=== PATIENT | female | born 1970 | race Caucasian/White ===

== ENCOUNTER 2022-10-03 17:16 | Emergency (ER) | payer OTHER, SELFPAY ==
[2022-10-03 17:37] VITALS: BP 112/72; PULSE 71; RESP 16; TEMP 36.2; O2SAT 97
--- NOTE | 2022-10-03 19:00 | ED.GENADULT ---
HPI - General Adult General Chief complaint: Skin/Abscess/Foreign Body Stated complaint: Skin Sore/Finger Source: patient Mode of arrival: ambulatory Limitations: no limitations History of Present Illness HPI narrative: Patient presents for evaluation of redness, swelling, pain to the skin surrounding the nail plate of the right index finger for the last week. No fever, chills, nausea, vomiting. She has tried to express fluid from the affected area. She states that sanguinous drainage has been present without purulence. She is not diabetic. She smokes approximately half a pack per day. No loss of range of motion. No paresthesias. She is right-hand dominant. She has applied a heating pad which seems to help. No additional complaints or concerns. Related Data Home Medications Medication Instructions Recorded Confirmed diclofenac sodium 75 mg mg PO 10/03/22 tablet,delayed release levothyroxine 112 mcg tablet mcg 10/03/22 rosuvastatin 20 mg tablet mg 10/03/22 Allergies Allergy/AdvReac Type Severity Reaction Status Date / Time No Known Allergies Allergy Verified 10/03/22 17:33 Review of Systems Review of Systems: CONSTITUTIONAL: Denies fever, chills, or sweats. EYES: Denies visual changes, redness, or discharge. ENT: Denies rhinorrhea, congestion, sore throat, or otalgia. CARDIOVASCULAR: Denies chest pain, palpitations, or edema. RESPIRATORY: Denies cough or dyspnea. GASTROINTESTINAL: Denies abdominal pain, nausea, vomiting, or diarrhea. GENITOURINARY: Denies dysuria or hematuria. SKIN: Reports swelling and redness to skin surrounding the nail plate of the right index finger MUSCULOSKELETAL: Reports pain in the right index finger. NEUROLOGIC: Denies headache, numbness, dizziness, or weakness. PSYCHIATRIC: Denies anxiety or depression. [facility] Past Medical History Medical History Hyperlipidemia Surgical History Surgical History No pertinent past surgical history Family History Family History Mother Family history non-contributory Social History Social History Smoking packs per day: 0.5 Smoking cigarettes per day: 10.0 Smoking status: Current every day smoker Alcohol intake: never Substance use: never Gender identity (if verbalized by the patient): Female Spiritual care concerns: No Exam Narrative: GENERAL: Well-appearing, well-nourished, and in no acute distress. HEAD: Normocephalic, atraumatic. EYES: PERRLA and EOMI. ENT: Nares clear, no rhinorrhea or epistaxis. Mucous membranes moist. Oropharynx without tonsillar hypertrophy exudate or other lesions. Bilateral TMs pearly ken nonbulging NECK: Supple. No adenopathy or masses. No carotid bruits or JVD CHEST: Clear to auscultation. No respiratory distress. No wheezes rales or rhonchi HEART: Regular rate and rhythm. No murmur heard. Normal peripheral pulses. ABDOMEN: Soft, nontender, nondistended, normal active bowel sounds. EXTREMITIES: Normal range of motion. No edema. SKIN: There is erythema and swelling to the skin surrounding the nail plate of the right index finger. Skin is excoriated. NEURO: No focal deficits. Alert and oriented x3. PSYCH: Normal mood and affect. Course Course Emergency Course: This is a 51-year-old female who presented for evaluation of pain, swelling, redness to the skin surrounding the nail plate of the right index finger. Exam is consistent with paronychia. Advised on warm soaks. Will discharge with Bactrim and Keflex. Follow up with primary provider. Advised not to smoke. Increase hydration. Go to the ER for worsening symptoms. Patient in agreement with plan of care. Level of Care: Express Care Visit Vital Signs Vital signs: Vital Signs Temperat
== END 2022-10-03 19:06 | disposition home or self-care (01) ==
PROVIDERS: Emergency Provider Nurse Practitioner; PCP Family Medicine
DX: L03.011 Cellulitis of right finger (principal); F17.210 Nicotine dependence, cigarettes, uncomplicated; E78.5 Hyperlipidemia, unspecified
CPT/HCPCS: 99213; G0463

== ENCOUNTER 2023-02-21 10:23 | Emergency (ER) | payer OTHER, SELFPAY ==
--- NOTE | 2023-02-21 10:28 | ED.SKABFB ---
HPI - Skin/Abscess/Foreign Bdy General Chief complaint: Skin/Abscess/Foreign Body Stated complaint: Rash Time Seen by Provider: 02/21/23 10:28 Source: patient and RN notes reviewed History of Present Illness HPI narrative: Patient is a 52-year-old female presents to urgent care with complaints of possibility of poison jorge to bilateral arms, hands, right eyelid, behind the left ear and bilateral legs. Patient states that she was pulling weeds approximately 1 week ago and believes she may have gotten to poison jorge. Patient states that she has been using an over counter the cream without much relief. No other acute complaints. No acute distress noted. Patient aware of the plan of care. Some parts of this dictation were generated by voice recognition software and may contain typographical and/or grammatical inaccuracies. Related Data Home Medications Medication Instructions Recorded Confirmed diclofenac sodium 75 mg mg PO 10/03/22 tablet,delayed release levothyroxine 112 mcg tablet mcg 10/03/22 rosuvastatin 20 mg tablet mg 10/03/22 Allergies Allergy/AdvReac Type Severity Reaction Status Date / Time No Known Allergies Allergy Verified 10/03/22 17:33 Review of Systems Review of Systems: CONSTITUTIONAL: Denies fever, chills, or sweats. EYES: Denies visual changes, redness, or discharge. ENT: Denies rhinorrhea, congestion, sore throat. Reports of left otalgia CARDIOVASCULAR: Denies chest pain, palpitations, or edema. RESPIRATORY: Denies cough or dyspnea. GASTROINTESTINAL: Denies abdominal pain, nausea, vomiting, or diarrhea. GENITOURINARY: Denies dysuria or hematuria. SKIN: Reports possible itchy poison jorge to bilateral lower legs, arms, the right eyelid and left ear MUSCULOSKELETAL: Denies back pain, joint pain, or myalgia. NEUROLOGIC: Denies headache, numbness, or weakness. All other systems reviewed are negative, except as documented in HPI. [facility] Past Medical History Medical History (Updated 02/21/23 @ 10:45 by MIKEL Corey) Hyperlipidemia Surgical History Surgical History No pertinent past surgical history Family History Family History Mother Family history non-contributory Social History Social History Smoking packs per day: 0.5 Smoking cigarettes per day: 10.0 Smoking status: Current every day smoker Alcohol intake: never Substance use: never Gender identity (if verbalized by the patient): Female Spiritual care concerns: No Comments At the time of my signature, I reviewed and agree with the nursing past medical, surgical, social, and family history. There is no relevant family history pertinent to the patient complaint. Exam Narrative: GENERAL: This is a well-nourished, well-developed patient, in no apparent distress. HEAD: normocephalic, atraumatic. EYES: PERRL. Sclera clear/white. Vision is grossly intact. EARS: Mild erythema and dry dermatitis noted behind the left external ear. Right External ears normal, auditory canals clear and without drainage, TMs normal without perforation. Hearing grossly intact. NOSE: External nose normal with no obvious nasal discharge, nares without redness, no rhinorrhea. THROAT: Mucous membranes moist NECK: Neck supple CARDIOVASCULAR: Regular rate and rhythm without murmurs, gallops, or rubs. RESPIRATORY: Clear to auscultation. Breath sounds equal bilaterally. No wheezes, rales, or rhonchi. SKIN: Pruritic, raised erythema rash to bilateral arms, legs, right eyelid and behind the left ear., warm, intact with no suspicious lesions or rash, good texture and turgor. NEURO: awake, alert, and oriented to person, place and time. There were no obvious focal neurologic abnormalities. EXTREMITIES: No clubbing, cyanosis, or edema. Course Course Level o
[2023-02-21 10:35] VITALS: BP 125/78; PULSE 65; RESP 16; TEMP 37; O2SAT 100
== END 2023-02-21 11:04 | disposition home or self-care (01) ==
PROVIDERS: Emergency Provider Nurse Practitioner Family
DX: L23.7 Allergic contact dermatitis due to plants, except food (principal); E78.5 Hyperlipidemia, unspecified; F17.210 Nicotine dependence, cigarettes, uncomplicated
CPT/HCPCS: 99213; G0463

== ENCOUNTER 2023-02-27 09:28 | Emergency (ER) | payer OTHER, SELFPAY ==
[2023-02-27 09:34] VITALS: BP 131/84; PULSE 74; RESP 20; TEMP 36.8; O2SAT 100
--- NOTE | 2023-02-27 09:47 | ED.EAR ---
HPI - Ear Problem General Chief complaint: Ear Stated complaint: Ear Pain Source: patient and RN notes reviewed History of Present Illness HPI Narrative: 52 yo F presents to urgent care with complaints of left ear pain for 1 week. Pt reports some yellow/brown drainage from the ear. Denies swimming this past week but states she was prior to the pain starting. Denies any fevers, chills, vomiting, sore throat, or congestion. Pt was seen here 1 week ago and given steroids for poison jorge which pt states is resolving. Related Data Home Medications Medication Instructions Recorded Confirmed levothyroxine 112 mcg tablet 112 mcg PO DIRECTED 10/03/22 02/27/23 rosuvastatin 20 mg tablet 20 mg PO DIRECTED 10/03/22 02/27/23 Allergies Allergy/AdvReac Type Severity Reaction Status Date / Time No Known Allergies Allergy Verified 02/27/23 09:47 Review of Systems Review of Systems: Pertinent positives and pertinent negatives per HPI. [facility] Past Medical History Medical History (Updated 02/27/23 @ 09:56 by Anay Beverly, [employer]) Hyperlipidemia Surgical History Surgical History No pertinent past surgical history Family History Family History Mother Family history non-contributory Social History Social History Smoking packs per day: 0.5 Smoking cigarettes per day: 10.0 Smoking status: Current every day smoker Alcohol intake: never Substance use: never Gender identity (if verbalized by the patient): Female Spiritual care concerns: No Comments At the time of my signature, I reviewed and agree with the nursing past medical, surgical, social, and family history. There is no relevant family history pertinent to the patient complaint. Exam Narrative: GENERAL: This is a well-nourished, well-developed patient, in no apparent distress. HEAD: normocephalic, atraumatic. EYES: Sclera clear/white. Vision is grossly intact. EARS: External ears normal, left ear canal and TM erythemic and edematous. NOSE: External nose normal with no obvious nasal discharge, nares without redness, no rhinorrhea. THROAT: Mucous membranes moist, posterior pharynx clear. NECK: Neck supple, non-tender without lymphadenopathy, masses or thyromegaly. CARDIOVASCULAR: Regular rate RESPIRATORY: No respiratory distress SKIN: warm, intact with no suspicious lesions or rash, good texture and turgor. NEURO: awake, alert, and oriented to person, place and time. There were no obvious focal neurologic abnormalities. Course Course Level of Care: Express Care Visit Vital Signs Vital signs: Vital Signs Temperature 98.3 F 02/27/23 09:34 Pulse Rate 74 02/27/23 09:34 Respiratory Rate 20 02/27/23 09:34 Blood Pressure 131/84 02/27/23 09:34 Pulse Oximetry 100 02/27/23 09:34 Oxygen Delivery Room Air 02/27/23 09:34 Temperature 98.3 F 02/27/23 09:34 Pulse Rate 74 02/27/23 09:34 Respiratory Rate 20 02/27/23 09:34 Blood Pressure 131/84 02/27/23 09:34 Pulse Oximetry 100 02/27/23 09:34 Oxygen Delivery Room Air 02/27/23 09:34 Reviewed Medical Decision Making MDM Narrative Medical decision making narrative: Take antibiotics as directed. May given ibuprofen and/or Tylenol as needed for pain and/or fever. Follow up with primary care provider in 7-10 days to have ear rechecked. Differential Diagnosis Differential Diagnosis: Acute otitis media, otitis externa, cerumen impaction Vital Signs Vital Signs: Vital Signs Temperature 98.3 F 02/27/23 09:34 Pulse Rate 74 02/27/23 09:34 Respiratory Rate 20 02/27/23 09:34 Blood Pressure 131/84 02/27/23 09:34 Pulse Oximetry 100 02/27/23 09:34 Oxygen Delivery Room Air 02/27/23 09:34 Temperature 98.3 F 02/27/23 09:34 Pulse Rate 74 02/27/23
== END 2023-02-27 09:58 | disposition home or self-care (01) ==
PROVIDERS: Emergency Provider Nurse Practitioner Family
DX: H66.92 Otitis media, unspecified, left ear (principal); F17.210 Nicotine dependence, cigarettes, uncomplicated; E78.5 Hyperlipidemia, unspecified
CPT/HCPCS: 99213; G0463

== ENCOUNTER 2024-07-19 12:06 | Emergency (ER) | payer OTHER, SELFPAY ==
[2024-07-19 12:15] VITALS: BP 130/76; PULSE 73; RESP 16; TEMP 36.4; O2SAT 98
--- NOTE | 2024-07-19 12:50 | ED.GENADULT ---
HPI - General Adult General Chief complaint: Upper Respiratory Infection Stated complaint: poss sinus infection/ears Source: patient Mode of arrival: ambulatory Limitations: no limitations History of Present Illness HPI narrative: Patient presents for evaluation of sick symptoms. She indicates approximately 10 days ago she developed a cough and sinus congestion. She has had an intermittent fever. She denies any chills, nausea, vomiting, diarrhea. Today she woke up with left-sided otalgia. No recent sick contacts to her knowledge. She smokes half pack per day. Related Data Home Medications Medication Instructions Recorded Confirmed levothyroxine 112 mcg tablet 112 mcg PO DIRECTED 10/03/22 02/27/23 rosuvastatin 20 mg tablet 20 mg PO DIRECTED 10/03/22 02/27/23 Allergies Allergy/AdvReac Type Severity Reaction Status Date / Time No Known Allergies Allergy Verified 02/27/23 09:47 Review of Systems Review of Systems: CONSTITUTIONAL: Denies fever, chills, or sweats. EYES: Denies visual changes, redness, or discharge. ENT: Reports left-sided otalgia and sinus congestion. Denies sore throat. CARDIOVASCULAR: Denies chest pain, palpitations, or edema. RESPIRATORY: Reports cough. Denies shortness of breath. GASTROINTESTINAL: Denies abdominal pain, nausea, vomiting, or diarrhea. GENITOURINARY: Denies dysuria or hematuria. SKIN: Denies rash or itching. MUSCULOSKELETAL: Denies back pain, joint pain, or myalgia. NEUROLOGIC: Denies headache, numbness, dizziness, or weakness. PSYCHIATRIC: Denies anxiety or depression. [facility] Past Medical History Medical History Hyperlipidemia Surgical History Surgical History No pertinent past surgical history Family History Family History Mother Family history non-contributory Social History Social History Smoking packs per day: 0.5 Smoking cigarettes per day: 10.0 Smoking status: Current every day smoker Alcohol intake: never Substance use: never Gender identity (if verbalized by the patient): Female Spiritual care concerns: No Exam Narrative: GENERAL: Well-appearing, well-nourished, and in no acute distress. HEAD: Normocephalic, atraumatic. EYES: PERRLA and EOMI. ENT: Nares clear, no rhinorrhea or epistaxis. Mucous membranes moist. Oropharynx without tonsillar hypertrophy exudate or other lesions. Left tympanic membrane is erythematous and bulging NECK: Supple. No adenopathy or masses. No carotid bruits or JVD CHEST: Clear to auscultation. No respiratory distress. No wheezes rales or rhonchi HEART: Regular rate and rhythm. No murmur heard. Normal peripheral pulses. ABDOMEN: Soft, nontender, nondistended, normal active bowel sounds. EXTREMITIES: Normal range of motion. No edema. SKIN: Warm, dry, no rash. NEURO: No focal deficits. Alert and oriented x3. PSYCH: Normal mood and affect. Course Course Emergency Course: This is a 53-year-old female who presented for evaluation of sick symptoms. She has evidence of otitis media on exam. She also qualifies for a diagnosis of bacterial sinusitis. Will discharge with Augmentin. Increase hydration. Advised smoking cessation. Follow up with primary provider. Go to the ER for worsening symptoms. Patient in agreement with plan care Level of Care: Express Care Visit Vital Signs Vital signs: Vital Signs Temperature 36.4 C 07/19/24 12:15 Pulse Rate 73 07/19/24 12:15 Respiratory Rate 16 07/19/24 12:15 Blood Pressure 130/76 07/19/24 12:15 Pulse Oximetry 98 07/19/24 12:15 Oxygen Delivery Room Air 07/19/24 12:15 Temperature 36.4 C 07/19/24 12:15 Pulse Rate 73 07/19/24 12:15 Respiratory Rate 16 07/19/24 12:15 Blood Pressure 130/76 07/19/24 12:15 Pulse Oximetry 98 07/19/24 12:15 Oxygen Delivery Room Air 07/19/24 12:15 Medical Decision Making Vital Signs Vital Signs: Vital Signs Temperature 36.4 C 07/19/24 12:15 Pulse Rate 73 07/19/24 12:15 Respiratory Rate 16 07/19/24 12:15 Blood Pressure 130/76 07/19/24 12:15 Pulse Oximetry 98 07/19/24 12:15 Oxygen Delivery Room Air 07/19/24 12:15 Temperature 36.4 C 07/19/24 12:15 Pulse Rate 73 07/19/24 12:15 Respiratory Rate 16 07/19/24 12:15 Blood Pressure 130/76 07/19/24 12:15 Pulse Oximetry 98 07/19/24 12:15 Oxygen Delivery Room Air 07/19/24 12:15 Discharge Plan Discharge Clinical Impression: Acute otitis media, left, Acute bacterial sinusitis Patient Disposition: Home, Self-Care Condition: Stable Instructions: Antibiotic Form, Sinusitis (ED), Ear Infection (AC) Patient Language: Ethiopian Prescriptions: New amoxicillin-pot clavulanate 875-125 mg tablet 1 tablet PO Q12H Qty: 20 0RF No Action levothyroxine 112 mcg tablet 112 mcg PO DIRECTED rosuvastatin 20 mg tablet 20 mg PO DIRECTED Follow-up/Referrals: Josh Duffy [Other] Time of Disposition: 12:40
== END 2024-07-19 12:45 | disposition home or self-care (01) ==
PROVIDERS: Emergency Provider Nurse Practitioner
DX: H66.92 Otitis media, unspecified, left ear (principal); J01.90 Acute sinusitis, unspecified; E78.5 Hyperlipidemia, unspecified; F17.210 Nicotine dependence, cigarettes, uncomplicated
CPT/HCPCS: 99213; G0463